=== PATIENT | male | born 1965 | race Caucasian/White ===

== ENCOUNTER 2017-11-25 14:11 | Observation (INO) | payer OTHER ==
[2017-11-25 14:29] LABS: CHLORIDE,CL 101 mEq/L (98-106); SODIUM,NA 136 mEq/L (136-145)
[2017-11-25] MEDS ORDERED: Ketorolac 10 MG Tab PO SCH (14:45)
[2017-11-25] MEDS ORDERED: Sodium Chloride 0.9% 1,000 ML IV SCH (14:45)
[2017-11-25] MEDS ORDERED: methylPREDNISolone Sodium Succinate 125 MG/2 ML SDV IVPUSH SCH (16:00)
[2017-11-25] MEDS ORDERED: Sodium Chloride 0.9% 1,000 ML ONE (16:15)
[2017-11-25] MEDS ORDERED: Acetaminophen 500 MG Tab ONE (17:11)
[2017-11-25] MEDS ORDERED: Acetaminophen 500 MG Tab PO ONE (17:30)
[2017-11-25] MEDS: Sodium Chloride 0.9% 1,000 ML IV SCH ×2 (18:39→23:39)
[2017-11-25] MEDS ORDERED: Acetaminophen/HYDROcodone 325-5 MG Tab PO PRN (20:58)
[2017-11-25] MEDS ORDERED: Ondansetron 4 MG/2 ML SDV IV PRN (20:58)
[2017-11-25] MEDS ORDERED: Acetaminophen 500 MG Tab PO PRN (20:58)
[2017-11-25] MEDS ORDERED: Temazepam 15 MG Cap PO PRN (20:58)
[2017-11-25] MEDS ORDERED: Ketorolac 30 MG/ML SDV IM PRN (20:58)
[2017-11-25] MEDS: methylPREDNISolone Sodium Succinate 125 MG/2 ML SDV IVPUSH SCH (21:42)
[2017-11-26] MEDS: Sodium Chloride 0.9% 1,000 ML IV SCH ×2 (00:34→08:20)
[2017-11-26 07:54] LABS: CHLORIDE,CL 105 mEq/L (98-106); SODIUM,NA 135 mEq/L (136-145)
[2017-11-26] MEDS: methylPREDNISolone Sodium Succinate 125 MG/2 ML SDV IVPUSH SCH (08:00)
--- NOTE | 2017-11-26 12:12 | PCM.DCSUM1 ---
Discharge Summary - Hospital Course Diagnosis: Stroke: No - Discharge Data Discharge Disposition: Home, Self-Care 01 Condition: Good - Patient Instructions Diet: Usual Diet as Tolerated Activity: As Tolerated, No Strenuous Activities, Rest and Relax Today Notify Provider of: Fever, Increased Pain, Nausea and/or Vomiting - Discharge Plan *PRESCRIPTION DRUG MONITORING PROGRAM REVIEWED*: Not Applicable *COPY OF PRESCRIPTION DRUG MONITORING REPORT IN PATIENT JOAN: Not Applicable Home Medications: Home Meds . [No Known Home Meds] 11/25/17 [History] Patient Handouts: Fever, Adult, Viral Illness, Adult Referrals: Nessa Garcia NP [ED Midlevel Provider] - - Patient Data Vitals - Most Recent: Last Vital Signs Temp 98.6 F 11/26/17 08:00 Pulse 50 L 11/26/17 08:00 Resp 20 11/26/17 08:00 BP 100/51 L 11/26/17 08:00 Pulse Ox 99 11/26/17 08:00 Weight - Most Recent: 195 lb I&O - Last 24 hours: Intake & Output 11/25/17 11/26/17 11/26/17 22:59 06:59 14:59 Intake Total 1000 971 Balance 1000 971 Lab Results - Last 24 hrs: Laboratory Results - last 24 hr 11/25/17 11/25/17 11/25/17 Range/Units 14:16 14:16 14:16 WBC 4.0 L (5.0-10.0) 10^3/uL RBC 4.47 L (4.50-6.00) 10^6/uL Hgb 13.8 L (14.0-18.0) g/dL Hct 40.9 (40.0-54.0) % MCV 91.5 (82.0-94.0) fL MCH 30.9 (27.0-32.0) pg MCHC 33.7 (33.0-38.0) g/dL RDW Coeff of Seven 14.2 (11.0-15.0) % Plt Count 121 L (150-400) 10^3/uL Neut % (Auto) 75.7 (35-85) % Lymph % (Auto) 12.1 (10-55) % [place] % (Auto) 11.6 (0-16) % Eos % (Auto) 0.3 (0-5) % Baso % (Auto) 0.3 (0-3) % Neut # (Auto) 3.00 (1.80-7.00) 10^3/uL Lymph # (Auto) 0.48 L (1.00-4.80) 10^3/uL [place] # (Auto) 0.46 (0.00-0.80) 10^3/uL Eos # (Auto) 0.01 (0.00-0.45) 10^3/uL Baso # (Auto) 0.01 10^3/uL Sodium 136 (136-145) mEq/L Potassium 4.1 (3.5-5.0) mEq/L Chloride 101 (98-106) mEq/L Carbon Dioxide 27 (21-32) mmol/L BUN 20 H (7-18) mg/dL Creatinine 1.1 (0.7-1.3) mg/dL Est Cr Clr Drug Dosing TNP Estimated GFR (MDRD) > 60 (>=60) mL/min Glucose 101 H (75-99) mg/dL Calcium 8.8 (8.4-10.1) mg/dL Total Bilirubin (0.0-1.0) mg/dL AST (15-37) U/L ALT (12-78) U/L Alkaline Phosphatase (46-116) U/L C-Reactive Protein 5.5 H (0.2-0.8) mg/dL Total Protein (6.4-8.2) g/dL Albumin (3.4-5.0) g/dL Monoscreen Negative 11/26/17 11/26/17 Range/Units 07:20 07:20 WBC 5.8 (5.0-10.0) 10^3/uL RBC 4.16 L (4.50-6.00) 10^6/uL Hgb 12.9 L (14.0-18.0) g/dL Hct 38.3 L (40.0-54.0) % MCV 92.1 (82.0-94.0) fL MCH 31.0 (27.0-32.0) pg MCHC 33.7 (33.0-38.0) g/dL RDW Coeff of Seven 13.7 (11.0-15.0) % Plt Count 122 L (150-400) 10^3/uL Neut % (Auto) 74.6 (35-85) % Lymph % (Auto) 13.8 (10-55) % [place] % (Auto) 11.6 (0-16) % Eos % (Auto) 0 (0-5) % Baso % (Auto) 0 (0-3) % Neut # (Auto) 4.32 (1.80-7.00) 10^3/uL Lymph # (Auto) 0.80 L (1.00-4.80) 10^3/uL [place] # (Auto) 0.67 (0.00-0.80) 10^3/uL Eos # (Auto) 0.00 (0.00-0.45) 10^3/uL Baso # (Auto) 0.00 10^3/uL Sodium 135 L (136-145) mEq/L Potassium 4.2 (3.5-5.0) mEq/L Chloride 105 (98-106) mEq/L Carbon Dioxide 27 (21-32) mmol/L BUN 16 (7-18) mg/dL Creatinine 1.1 (0.7-1.3) mg/dL Est Cr Clr Drug Dosing 84.62 Estimated GFR (MDRD) > 60 (>=60) mL/min Glucose 119 H (75-99) mg/dL Calcium 8.0 L (8.4-10.1) mg/dL Total Bilirubin 0.4 (0.0-1.0) mg/dL AST 58 H (15-37) U/L ALT 95 H (12-78) U/L Alkaline Phosphatase 93 (46-116) U/L C-Reactive Protein 5.7 H (0.2-0.8) mg/dL Total Protein 5.7 L (6.4-8.2) g/dL Albumin 2.7 L (3.4-5.0) g/dL Monoscreen Med Orders - Current: Current Medications Acetaminophen (Tylenol Extra Strength) 1,000 mg PO Q6H PRN PRN Reason: Pain (Mild 1-3)/fever Last Admin: 11/26/17 08:20 Dose: 1,000 mg Hydrocodone Bitart/Acetaminophen ([place] 325-5 Mg) 1 tab PO Q4H PRN PRN Reason: Pain (moderate 4-6) Sodium Chloride (Normal Saline) 1,000 mls @ 125 mls/hr IV ASDIRECTED [facility] Last Admin: 11/26/17 08:20 Dose: 125 mls/hr Ketorolac Tromethamine (Toradol) 30 mg IM Q6H PRN PRN Reason: Pain (moderate 4-6) Methylprednisolone Sodium Succinate (Solu-Medrol) 62.5 mg IVPUSH Q12H [facility] Last Admin: 11/26/17 08:00 Dose: 62.5 mg Ondansetron HCl (Zofran) 4 mg IV Q6H PRN PRN Reason: Nausea/Vomiting Temazepam (Restoril) 15 mg PO BEDTIME PRN PRN Reason: Sleep Discontinued Medications Acetaminophen (Tylenol Extra Strength) Confirm Administered Dose 1,000 mg .ROUTE .STK-MED ONE Stop: 11/25/17 17:12 Last Admin: 11/25/17 17:13 Dose: 1,000 mg Acetaminophen (Tylenol Extra Strength) 1,000 mg PO ONETIME ONE Stop: 11/25/17 17:31 Last Admin: 11/25/17 18:39 Dose: 1,000 mg Sodium Chloride (Normal Saline) 1,000 mls @ 999 mls/hr IV ONETIME [facility] Last Admin: 11/25/17 14:57 Dose: 999 mls/hr Sodium Chloride (Normal Saline) Confirm Administered Dose 1,000 mls @ as directed .ROUTE .STK-MED ONE Stop: 11/25/17 16:16 Last Admin: 11/25/17 18:39 Dose: Not Given Sodium Chloride (Normal Saline) 1,000 mls @ 250 mls/hr IV ASDIRECTED [facility] Last Admin: 11/25/17 23:39 Dose: 250 mls/hr Ketorolac Tromethamine (Toradol) 10 mg PO ONETIME SHANA Stop: 11/30/17 14:46 Last Admin: 11/25/17 14:58 Dose: 10 mg Methylprednisolone Sodium Succinate (Solu-Medrol) 125 mg IVPUSH ONETIME [facility] Last Admin: 11/25/17 16:03 Dose: 125 mg
== END 2017-11-26 11:48 | disposition home or self-care (01) ==
LOC: CC.ACU 14:11 → CC.MS 20:10 → UNDOADMOB 20:10 → UNDODISOB 20:15 → CC.MS 20:58 → UNDODISOB 11-26 11:48
PROVIDERS: ADMIT Nurse Practitioner Family; ATTEND Nurse Practitioner Family
DX: R50.9 Fever, unspecified (principal); R51 Headache
CPT/HCPCS: 36415; 70450; 71046; 80048; 80053; 85025; 86140; 86308; 86618; 86788; 96361; 96374; 96376; A9270-GY; G0378; J2930; J7030